=== PATIENT | female | born 1975 | race Caucasian/White ===

== ENCOUNTER 2017-09-30 10:04 | Emergency (ER) | payer MEDICAID ==
--- NOTE | 2017-09-30 10:57 | ER Document Report ---
ED Medical Screen (RME) - General Chief Complaint: Leg Swelling Stated Complaint: ANKLE CALF PAIN Time Seen by Provider: 09/30/17 10:55 Notes: Patient has a history of multiple DVTs and PEs. She states that despite taking Xarelto and warfarin she has still had DVTs. She states she is currently on Eliquis. She states that she missed 3 doses of her Eliquis last week. Now she is noticing some swelling in the right leg. She states she has been worked up at [facility] and no cause can be found for her frequent clotting. TRAVEL OUTSIDE OF THE [place] IN LAST 30 DAYS: No - Related Data Allergies/Adverse Reactions: acetaminophen [From Tylenol] Allergy (Verified 09/30/17 10:11) morphine [Morphine] Allergy (Verified 09/30/17 10:11) Penicillins Allergy (Verified 09/30/17 10:11) Past Medical History - Immunizations Hx Diphtheria, Pertussis, Tetanus Vaccination: No Physical Exam - Vital signs Vitals: Temp Pulse Resp BP Pulse Ox 98.5 F 106 H 20 133/85 H 99 09/30/17 10:39 09/30/17 10:39 09/30/17 10:39 09/30/17 10:39 09/30/17 10:39 Course - Vital Signs Vital signs: Temp Pulse Resp BP Pulse Ox 98.5 F 106 H 20 133/85 H 99 09/30/17 10:39 09/30/17 10:39 09/30/17 10:39 09/30/17 10:39 09/30/17 10:39
[2017-09-30 11:26] LABS: ABSOLUTE BASOPHILS # (AUTO) 0.1 10^3/uL (0.0-0.2); ABSOLUTE EOSINOPHILS # (AUTO) 0.1 10^3/uL (0.0-0.6); ABSOLUTE LYMPHOCYTES (AUTO) 1.7 10^3/uL (0.5-4.7); ABSOLUTE MONOCYTES (AUTO) 0.6 10^3/uL (0.1-1.4); BASOPHILS % (AUTO) 0.7 % (0-2); EOSINOPHILS % (AUTO) 1.2 % (0-6); HEMATOCRIT 37.8 % (36.0-47.0); HEMOGLOBIN 12.7 g/dL (12.0-15.5); LYMPHOCYTES % (AUTO) 18.2 % (13-45); MEAN CORPUSCULAR HEMOGLOBIN 27.7 pg (27.0-33.4); MEAN CORPUSCULAR HGB CONC 33.7 g/dL (32.0-36.0); MEAN CORPUSCULAR VOLUME 82 fl (80-97); MONOCYTES % (AUTO) 6.3 % (3-13); PLATELET COUNT 435 10^3/uL (150-450); RED CELL DISTRIBUTION WIDTH 15.5 % (11.5-14.0); SEGMENTED NEUTROPHILS % (AUTO) 73.6 % (42-78); TOTAL CELLS COUNTED % (AUTO) 100 %; WHITE BLOOD COUNT 9.5 10^3/uL (4.0-10.5)
[2017-09-30 11:37] LABS: ALANINE AMINOTRANSFERASE 16 U/L (9-52); ALBUMIN 4.7 g/dL (3.5-5.0); ALKALINE PHOSPHATASE 70 U/L (38-126); ANION GAP 17 (5-19); ASPARTATE AMINO TRANSFERASE 19 U/L (14-36); BILIRUBIN,DIRECT 0.1 mg/dL (0.0-0.4); BILIRUBIN,TOTAL 0.3 mg/dL (0.2-1.3); BLOOD UREA NITROGEN 12 mg/dL (7-20); CALCIUM 10.2 mg/dL (8.4-10.2); CARBON DIOXIDE 20 mmol/L (22-30); CHLORIDE 106 mmol/L (98-107); GLUCOSE 97 mg/dL (75-110); POTASSIUM 4.4 mmol/L (3.6-5.0); SODIUM 142.6 mmol/L (137-145); TOTAL PROTEIN 7.7 g/dL (6.3-8.2)
--- NOTE | 2017-09-30 11:38 | ER Document Report ---
ED Extremity Problem, Lower - General Chief Complaint: Leg Swelling Stated Complaint: ANKLE CALF PAIN Time Seen by Provider: 09/30/17 10:55 TRAVEL OUTSIDE OF THE [place] IN LAST 30 DAYS: No - HPI Notes: Patient has a history of multiple DVTs and PEs. She states that despite taking Xarelto and warfarin she has still had DVTs. She states she is currently on Eliquis. She states that she missed 3 doses of her Eliquis last week. Now she is noticing some swelling in the right leg. She states she has been worked up at [facility] and no cause can be found for her frequent clotting. - Related Data Allergies/Adverse Reactions: acetaminophen [From Tylenol] Allergy (Verified 09/30/17 10:11) morphine [Morphine] Allergy (Verified 09/30/17 10:11) Penicillins Allergy (Verified 09/30/17 10:11) Past Medical History - Social History Smoking Status: Former Smoker Family History: Reviewed & Not Pertinent Patient has suicidal ideation: No Patient has homicidal ideation: No Renal/ Medical History: Denies: Hx Peritoneal Dialysis - Immunizations Hx Diphtheria, Pertussis, Tetanus Vaccination: No Review of Systems - Review of Systems Notes: REVIEW OF SYSTEMS: CONSTITUTIONAL: -fevers, -chills EENT: -eye pain, -difficulty swallowing, -nasal congestion CARDIOVASCULAR: -chest pain, -syncope. RESPIRATORY: -cough, -SOB GASTROINTESTINAL: -abdominal pain, -nausea, -vomiting, -diarrhea GENITOURINARY: -dysuria, -hematuria MUSCULOSKELETAL: swelling right ankle SKIN: -rash or skin lesions. HEMATOLOGIC: -easy bruising or bleeding. LYMPHATIC: -swollen, enlarged glands. NEUROLOGICAL: -altered mental status or loss of consciousness, -headache, - neurologic symptoms PSYCHIATRIC: -anxiety, -depression. ALL OTHER SYSTEMS REVIEWED AND NEGATIVE. Physical Exam - Vital signs Vitals: Temp Pulse Resp BP Pulse Ox 98.5 F 106 H 20 133/85 H 99 09/30/17 10:39 09/30/17 10:39 09/30/17 10:39 09/30/17 10:39 09/30/17 10:39 - Notes Notes: PHYSICAL EXAMINATION: GENERAL: Well-appearing, well-nourished and in no acute distress. HEAD: Atraumatic, normocephalic. EYES: Pupils equal round and reactive to light, extraocular movements intact, sclera anicteric, conjunctiva are normal. ENT: nares patent, oropharynx clear without exudates. Moist mucous membranes. NECK: Normal range of motion, supple without lymphadenopathy LUNGS: Breath sounds clear to auscultation bilaterally and equal. No wheezes rales or rhonchi. HEART: Regular rate and rhythm without murmurs ABDOMEN: Soft, nontender, normoactive bowel sounds. No guarding, no rebound. No masses appreciated. EXTREMITIES: Normal range of motion, no edema right ankle posterior medial malleolus, intact distal pulses NEUROLOGICAL: Cranial nerves grossly intact. Normal speech, normal gait. Normal sensory and motor exams. PSYCH: Normal mood, normal affect. SKIN: Warm, Dry, normal turgor, no rashes or lesions noted. Course - Re-evaluation Re-evalutation: 09/30/17 12:29 Well-appearing female no acute distress extensive lab workup unremarkable. Ultrasound right leg finds no new blood clots. Patient currently on Eliquis and aspirin daily. Will discharge home recommended follow-up at her [facility] - Vital Signs Vital signs: Temp Pulse Resp BP Pulse Ox 98.5 F 106 H 20 133/85 H 99 09/30/17 10:39 09/30/17 10:39 09/30/17 10:39 09/30/17 10:39 09/30/17 10:39 - Laboratory Result Diagrams: 09/30/17 11:13 09/30/17 11:13 Laboratory results interpreted by me: 09/30/17 09/30/17 11:13 11:13 RDW 15.5 H Carbon Dioxide 20 L Discharge - Discharge Clinical Impression: Blood clot associated with vein wall inflammation Condition: Good Disposition: HOME, SELF-CARE Instructions: DVT Outpatient Treatment ([facility]) Additional Instructions: See your DrSoheila at [facility]
[2017-09-30] MEDS ORDERED: OXYCODONE HCL IR 5 MG TABLET PO ONE (11:47)
[2017-09-30 12:45] VITALS: BP 111/61
--- NOTE | 2017-09-30 16:26 | XCELERA REPORT ---
[address] [address] Lower Extremity Venous Evaluation Name: VIRGILIO FOOTE Age: 41 yrs Gender: Female : 1975 Patient Status: Emergency Patient Location: ER Study Date: 09/30/2017 11:41 AM Procedure: Color flow and duplex imaging of the veins of the right lower extremity as well as the left Common Femoral vein. Reason For Study: right leg swelling/hx dvt Ordering Physician: DREAD UMANA Performed By: Lucero Jain Right Sided Venous Evaluation Non compressible, no flow in one of two Posterior Tibial veins. Otherwise normal vessel filling wall to wall, compression and augmentation as well as Colour flow down to the infrageniculate veins. Left Sided Venous Evaluation The left common femoral vein is fully compressible. Spontaneous and phasic flow is present in the left common femoral vein. Critical Findings Called in to the ER at about 1400. Interpretation Summary Very limited, chronic DVT in the right leg. : DREAD UMANA > Fan Echevarria
== END 2017-09-30 12:45 | disposition home or self-care (01) ==
LOC: ER 10:04
DX: I82.401 Acute embolism and thrombosis of unspecified deep veins of right lower extremity (principal); M79.89 Other specified soft tissue disorders; M79.604 Pain in right leg; Z79.01 Long term (current) use of anticoagulants; Z87.891 Personal history of nicotine dependence; Z86.718 Personal history of other venous thrombosis and embolism
CPT/HCPCS: 99284; 36415; 85025; 80053; 93971 ×2; J3490